=== PATIENT | female | born 1975 | race Caucasian/White ===

== ENCOUNTER 2018-03-10 13:08 | Emergency (ER) | payer OTHER ==
[~2018-03-10] VITALS: Ht 165.1 cm; Wt 67.1 kg
[2018-03-10 14:08] LABS: URINE BILIRUBIN NEGATIVE (Negative); URINE BLOOD TRACE (Negative); URINE CLARITY CLEAR; URINE COLOR YELLOW; URINE GLUCOSE-RANDOM TRACE (Negative); URINE KETONES 1+ (Negative); URINE LEUKOCYTES-REFLEX NEGATIVE (Negative); URINE NITRITE-REFLEX POSITIVE (Negative); URINE PROTEIN NEGATIVE (Negative); URINE SPECIFIC GRAVITY 1.025 (1.005-1.030)
[2018-03-10 14:18] LABS: BACTERIA-REFLEX 1-9 Few /HPF (None Seen); CASTS None Seen /LPF (None Seen); CRYSTALS None Seen /LPF (None Seen); MUCUS 0-3 Light strn/LPF (None Seen); SQUAMOUS >10 Many /LPF (0-3); URINE RBC 0-2 Rare /HPF (0-2); URINE WBC-REFLEX 0-5 Rare /HPF (0-5)
[2018-03-10 14:36] LABS: ABSOLUTE BASOPHILS 0.1 thou/uL (0.0-0.2); ABSOLUTE EOSINOPHILS 0.1 thou/uL (0.0-0.7); ABSOLUTE LYMPHOCYTES 3.1 thou/uL (0.8-5.3); ABSOLUTE MONOCYTES 0.8 thou/uL (0.0-1.2); ABSOLUTE NEUTROPHILS 9.7 thou/uL (1.6-8.1); BASOPHILS 0.6 %; HEMATOCRIT 43.4 % (37.0-47.0); HEMOGLOBIN 14.4 gm/dL (12.0-15.0); LYMPHOCYTES 22.2 %; MCH 31.4 pg (26.0-34.0); MCHC 33.3 g/dL (28.0-37.0); MCV 94.4 fL (80.0-100.0); MONOCYTES 5.7 %; MPV 8.8 fl. (7.2-11.1); NUCLEATED RBCS 0 /100WBC; PLATELET COUNT* 293 thou/uL (150-400); POLYS 70.5 %; RBC 4.59 mil/uL (4.20-5.00); WBC 13.8 thou/uL (4.0-11.0)
[2018-03-10 14:43] LABS: CALCIUM 8.9 mg/dL (8.5-10.1); CREATININE 0.7 mg/dL (0.6-1.3)
[2018-03-10 14:48] LABS: ALBUMIN 3.9 g/dL (3.4-5.0); TOTAL BILIRUBIN 0.4 mg/dL (<0.1-1.0); TOTAL PROTEIN 7.5 g/dL (6.4-8.2)
[2018-03-10] MEDS ORDERED: ZOFRAN4 MG PO (15:43)
[2018-03-10] MEDS ORDERED: ACETAMINOPHEN-1 EAC1 PO (15:43)
[2018-03-10] MEDS ORDERED: BACTRIM DS TAB1 EACH PO (15:43)
[2018-03-10] MEDS ORDERED: DIFLUCAN150 MG PO (15:54)
[2018-03-10 15:57] VITALS: BP 144/92
== END 2018-03-10 15:58 | disposition home or self-care (01) ==
LOC: M.ERS 13:08
PROVIDERS: Nurse Practitioner Family
DX: N39.0 Urinary tract infection, site not specified (principal); F17.200 Nicotine dependence, unspecified, uncomplicated; Z90.89 Acquired absence of other organs

== ENCOUNTER → 2018-09-16 | Outpatient (CLI) | payer OTHER ==
[~2018-09-16] MED LIST: ACETAMINOPHEN-1 EAC1 PO; BACTRIM DS TAB1 EACH PO; DIFLUCAN150 MG PO; ZOFRAN4 MG PO
[2018-09-16 16:10] LABS: ABSOLUTE BASOPHILS 0.2 thou/uL (0.0-0.2); ABSOLUTE EOSINOPHILS 0.1 thou/uL (0.0-0.7); ABSOLUTE LYMPHOCYTES 3.7 thou/uL (0.8-5.3); ABSOLUTE MONOCYTES 1.1 thou/uL (0.0-1.2); ABSOLUTE NEUTROPHILS 13.1 thou/uL (1.6-8.1); BASOPHILS 0.9 %; EOSINOPHILS 0.8 %; HEMATOCRIT 42.6 % (37.0-47.0); HEMOGLOBIN 14.4 gm/dL (12.0-15.0); LYMPHOCYTES 20.2 %; MCHC 33.8 g/dL (28.0-37.0); MCV 94.5 fL (80.0-100.0); MONOCYTES 5.8 %; MPV 8.7 fl. (7.2-11.1); NUCLEATED RBCS 0 /100WBC; PLATELET COUNT* 295 thou/uL (150-400); POLYS 72.3 %; RDW-CV 12.7 % (10.5-14.5); WBC 18.1 thou/uL (4.0-11.0)
[2018-09-16 16:22] LABS: CALCIUM 9.1 mg/dL (8.5-10.1); CREATININE 0.8 mg/dL (0.6-1.3); DIRECT BILIRUBIN 0.1 mg/dL (<0.1-0.3); POTASSIUM 4.7 mmol/L (3.5-5.1); TOTAL BILIRUBIN 0.3 mg/dL (<0.1-1.0); TOTAL PROTEIN 7.4 g/dL (6.4-8.2)
== END ==
LOC: M.CT 15:30
PROVIDERS: Internal Medicine
DX: N83.201 Unspecified ovarian cyst, right side (principal); J98.6 Disorders of diaphragm; R93.2 Abnormal findings on diagnostic imaging of liver and biliary tract; R14.0 Abdominal distension (gaseous); R10.9 Unspecified abdominal pain; R82.90 Unspecified abnormal findings in urine; Z90.710 Acquired absence of both cervix and uterus

== ENCOUNTER → 2019-11-09 | Outpatient (CLI) | payer OTHER | LOC: M.ULTRA 15:38 | DX: M79.622 Pain in left upper arm (principal) ==

== ENCOUNTER → 2019-11-23 | Outpatient (CLI) | payer OTHER | LOC: M.RAD 08:52 | DX: N64.89 Other specified disorders of breast (principal); M79.622 Pain in left upper arm ==

== ENCOUNTER → 2020-04-03 | Outpatient (CLI) | payer OTHER ==
--- NOTE | 2020-04-03 16:11 | 2DMMODE ---
[place] [address] 2 D/M-MODE ECHOCARDIOGRAM Name: SUE NIEVES Room: [facility]#: [id number] Admission: 04/03/20 Attend Phys: Gorge Mcgee, Discharge: Date of : 73 Date of Service: 04/03/20 1611 Report #: [id number] THIS REPORT FOR: cc: Gorge Mcgee MD, David L. MD Blick, David R. MD [facility] ~ APPROVED REPORT Study performed: 04/03/2020 08:59:54 EXAM: Comprehensive 2D, Doppler, and color-flow Echocardiogram Patient Location: Out-Patient BSA: 1.77 HR: 65 bpm BP: 120/72 mmHg Other Information Study Quality: Good Indications Peripheral Edema 2D Dimensions IVSd: 11.14 (7-11mm) LVOT Diam: 20.59 (18-24mm) LVDd: 44.32 mm PWd: 9.96 (7-11mm) Ascending Ao: 27.37 (22-36mm) LVDs: 29.10 (25-40mm) Aortic Root: 26.39 mm Volumes Left Atrial Volume (Systole) LA ESV Index: 17.70 mL/m2 Aortic Valve AoV Peak Braulio.: 1.08 m/s AO Peak Gr.: 4.63 mmHg LVOT Max P.60 mmHg AO Mean Gr.: 2.29 mmHg LVOT Mean P.24 mmHg LVOT Max V: 0.81 m/s AO V2 VTI: 19.21 cm LVOT Mean V: 0.51 m/s TODD (VTI): 2.93 cm2 LVOT V1 VTI: 16.91 cm Mitral Valve E/A Ratio: 1.27 [place] [address] 2 D/M-MODE ECHOCARDIOGRAM Name: SUE NIEVES Room: [facility]#: [id number] Admission: 04/03/20 Attend Phys: Gorge Mcgee, Discharge: Date of : 73 Date of Service: 04/03/20 1611 Report #: [id number] MV Decel. Time: 163.68 ms MV E Max Braulio.: 0.54 m/s MV PHT: 47.47 ms MVA (PHT): 4.63 cm2 TDI E/Lateral E': 4.15 E/Medial E': 6.00 Medial E' Braulio.: 0.09 m/s Lateral E' Braulio.: 0.13 m/s Pulmonary Valve PV Peak Braulio.: 0.80 m/s PV Peak Gr.: 2.56 mmHg Tricuspid Valve RAP Estimate: 5.00 mmHg TR Peak Gr.: 17.27 mmHg RVSP: 22.27 mmHg PA Pressure: 22.27 mmHg Left Ventricle The left ventricle is normal size. There is normal LV segmental wall motion. There is normal left ventricular wall thickness. Left ventricular systolic function is normal. The left ventricular ejection fraction is within the normal range. LVEF is 55-60%. The left ventricular diastolic function is normal. Right Ventricle The right ventricle is normal size. The right ventricular systolic function is normal. Atria The left atrium size is normal. The right atrium size is normal. Aortic Valve Aortic valve is possibly bicuspid. No aortic regurgitation is present. There is no aortic valvular stenosis. Mitral Valve The mitral valve is normal in structure. There is no mitral valve regurgitation noted. No evidence of mitral valve stenosis. Tricuspid Valve The tricuspid valve is normal in structure. Trace tricuspid regurgitation[place] [address] 2 D/M-MODE ECHOCARDIOGRAM Name: SUE NIEVES Room: [facility]#: [id number] Admission: 04/03/20 Attend Phys: Gorge Mcgee, Discharge: Date of : 73 Date of Service: 04/03/20 1611 Report #: [id number] The pulmonary valve is normal in structure. There is no pulmonic valvular regurgitation. Great Vessels The aortic root is normal in size. IVC is normal in size and collapses >50% with inspiration. Pericardium There is no pericardial effusion. <Conclusion> LVEF is 55-60%. Aortic valve is possibly bicuspid. <ELECTRONICALLY SIGNED> By: Gorge Jacobson MD, FACC 04/03/201610 10 10 Gorge Jacobson MD, FACC /INF
== END ==
LOC: M.CRD 09:00
PROVIDERS: ATTEND Internal Medicine
DX: R60.9 Edema, unspecified (principal); R14.0 Abdominal distension (gaseous)

== ENCOUNTER → 2020-04-03 | Outpatient (CLI) | payer OTHER | LOC: M.CT 08:59 | PROVIDERS: ATTEND Internal Medicine | DX: Z13.6 Encounter for screening for cardiovascular disorders (principal) ==

== ENCOUNTER 2020-06-20 17:46 | Emergency (ER) | payer OTHER ==
[~2020-06-20] VITALS: Ht 165.1 cm; Wt 68.5 kg
[2020-06-20] MEDS ORDERED: PHENAZOPYRIDIN200 M2 PO (18:00)
[2020-06-20 18:20] LABS: URINE CLARITY HAZY; URINE COLOR ORANGE; URINE SPECIFIC GRAVITY 1.022 (1.005-1.030)
[2020-06-20 18:23] LABS: BACTERIA-REFLEX >30 Many /HPF (None Seen); MUCUS 4-6 Moderate strn/LPF (None Seen); SQUAMOUS >10 Many /LPF (0-3); URINE RBC 0-2 Rare /HPF (0-2); URINE WBC-REFLEX 0-5 Rare /HPF (0-5)
[2020-06-20 18:24] LABS: CRYSTALS None Seen /LPF (None Seen); HYALINE CASTS 0-3 Few /LPF (None Seen)
[2020-06-20 18:24] LABS: ABSOLUTE BASOPHILS 0.1 thou/uL (0.0-0.2); ABSOLUTE EOSINOPHILS 0.2 thou/uL (0.0-0.7); ABSOLUTE MONOCYTES 0.8 thou/uL (0.0-1.2); BASOPHILS 0.6 %; EOSINOPHILS 1.6 %; HEMATOCRIT 37.6 % (37.0-47.0); HEMOGLOBIN 12.7 gm/dL (12.0-15.0); LYMPHOCYTES 29.8 %; MCH 32.5 pg (26.0-34.0); MCHC 33.7 g/dL (28.0-37.0); MCV 96.5 fL (80.0-100.0); MPV 7.9 fl. (7.2-11.1); NUCLEATED RBCS 0 /100WBC; PLATELET COUNT* 281 thou/uL (150-400)
[2020-06-20 18:56] LABS: CREATININE 0.6 mg/dL (0.6-1.3); POTASSIUM 4.9 mmol/L (3.5-5.1)
[2020-06-20 19:01] LABS: ALBUMIN 3.5 g/dL (3.4-5.0); TOTAL BILIRUBIN 0.4 mg/dL (<0.1-1.0); TOTAL PROTEIN 6.1 g/dL (6.4-8.2)
[2020-06-20] MEDS ORDERED: BACTRIM DS TAB1 EAC1 PO (19:20)
[2020-06-20 19:44] VITALS: BP 128/63
== END 2020-06-20 19:44 | disposition home or self-care (01) ==
LOC: M.ERS 17:46
PROVIDERS: Physician Assistant
DX: R31.9 Hematuria, unspecified (principal); R10.9 Unspecified abdominal pain; R30.0 Dysuria; R35.0 Frequency of micturition

== ENCOUNTER → 2020-06-25 | Outpatient (CLI) | payer OTHER ==
[~2020-06-25] MED LIST changes: +BACTRIM DS TAB1 EAC1 PO; +PHENAZOPYRIDIN200 M2 PO
== END ==
LOC: M.RAD 07:44
PROVIDERS: ATTEND Registered Nurse Diabetes Educator
DX: Z12.31 Encounter for screening mammogram for malignant neoplasm of breast (principal)